=== PATIENT | female | born 1945 | race Caucasian/White ===

== ENCOUNTER 2024-08-23 04:06 | Day surgery (SDC) | payer OTHER, MEDICARE ==
[2024-08-21 14:08] VITALS: BMI 37.2
[2024-08-23] MEDS ORDERED: ACETAMINOPHEN 500 MG TABLET (FP) PO PRN (08:37)
[2024-08-23 09:04] VITALS: TEMP 97.6
[2024-08-23] MEDS: LIDOCAINE HCL 1% PRESERVATIVE FREE - 30ML VIAL IJ ONE ×3 (09:35)
[2024-08-23] MEDS: IOHEXOL 180 MG/1 ML ML IJ ONE ×2 (09:41)
[2024-08-23] MEDS: DEXAMETHASONE SOD PHOSPHATE 10 MG/1 ML VIAL IVPUSH ONE ×2 (09:50)
[2024-08-23 10:13] VITALS: BP 123/69; PULSE 68; RESP 16
== END 2024-08-23 11:45 | disposition home or self-care (01) ==
LOC: JASU-SURG 04:06
PROVIDERS: ATTEND Pain Medicine Pain Medicine
PROC: 3E0R3BZ Introduction of Anesthetic Agent into Spinal Canal, Percutaneous Approach (ICD-10-PCS; 2024-08-23)
PROC: 3E0R33Z Introduction of Anti-inflammatory into Spinal Canal, Percutaneous Approach (ICD-10-PCS; principal; 2024-08-23 10:15)
DX: M54.16 Radiculopathy, lumbar region (principal)
CPT/HCPCS: 76000-TC-FY; J1100

== ENCOUNTER 2024-09-13 04:41 | Day surgery (SDC) | payer OTHER, MEDICARE ==
[2024-09-11 10:14] VITALS: BMI 37.9
[2024-09-13] MEDS ORDERED: ACETAMINOPHEN 500 MG TABLET (FP) PO PRN (09:31)
[2024-09-13] MEDS ORDERED: TRIAMCINOLONE ACET 40MG/1ML VIAL ONE (14:06)
[2024-09-13] MEDS: IOHEXOL 180 MG/1 ML ML IJ ONE ×2 (14:15)
[2024-09-13] MEDS: TRIAMCINOLONE ACET 40MG/1ML VIAL IM ONE ×2 (14:16)
[2024-09-13] MEDS: LIDOCAINE HCL 1% PRESERVATIVE FREE - 30ML VIAL IJ ONE ×2 (14:18)
[2024-09-13] MEDS: BUPIVACAINE HCL/PF 0.5% (5MG/ML) 10 ML VIAL IJ ONE ×2 (14:18)
[2024-09-13 16:13] VITALS: BP 108/65; PULSE 80; RESP 20; TEMP 97.3
== END 2024-09-13 14:50 | disposition home or self-care (01) ==
LOC: JASU-SURG 04:41
PROVIDERS: ATTEND Pain Medicine Pain Medicine
PROC: 3E0U3BZ Introduction of Anesthetic Agent into Joints, Percutaneous Approach (ICD-10-PCS; 2024-09-13)
PROC: 3E0U33Z Introduction of Anti-inflammatory into Joints, Percutaneous Approach (ICD-10-PCS; principal; 2024-09-13 14:00)
DX: M53.3 Sacrococcygeal disorders, not elsewhere classified (principal)
CPT/HCPCS: 76000-TC-FY

== ENCOUNTER 2024-11-09 03:48 | Day surgery (SDC) | payer OTHER, MEDICARE ==
[2024-11-09] MEDS ORDERED: ACETAMINOPHEN 500 MG TABLET (FP) PO PRN (09:46)
[2024-11-09] MEDS: LIDOCAINE HCL 1% PRESERVATIVE FREE - 30ML VIAL IJ ONE ×3 (11:14)
[2024-11-09 11:53] VITALS: RESP 18; TEMP 97.8
[2024-11-09 16:01] VITALS: BP 135/69; PULSE 68
== END 2024-11-09 12:43 | disposition home or self-care (01) ==
LOC: JASUSAT 03:48
PROVIDERS: ATTEND Pain Medicine Pain Medicine
PROC: 01HY3MZ Insertion of Neurostimulator Lead into Peripheral Nerve, Percutaneous Approach (ICD-10-PCS; principal; 2024-11-09 11:00)
DX: G89.4 Chronic pain syndrome (principal)
CPT/HCPCS: 64555; C1778

== ENCOUNTER 2024-11-30 03:50 | Day surgery (SDC) | payer OTHER, MEDICARE ==
[2024-11-29 13:11] VITALS: BMI 37.2
[2024-11-30] MEDS ORDERED: ACETAMINOPHEN 500 MG TABLET (FP) PO PRN (08:47)
[2024-11-30] MEDS ORDERED: LIDOCAINE HCL/PF 2% SDV 5ML VIAL ONE (11:39)
[2024-11-30] MEDS: LIDOCAINE HCL 1% PRESERVATIVE FREE - 30ML VIAL IJ ONE ×2 (12:17)
[2024-11-30 13:11] VITALS: RESP 18
[2024-11-30 13:12] VITALS: BP 123/81; PULSE 69; TEMP 97.5
== END 2024-11-30 13:30 | disposition home or self-care (01) ==
LOC: JASU-SURG 03:50
PROVIDERS: ATTEND Pain Medicine Pain Medicine
PROC: 01HY3MZ Insertion of Neurostimulator Lead into Peripheral Nerve, Percutaneous Approach (ICD-10-PCS; principal; 2024-11-30 10:30)
DX: G89.4 Chronic pain syndrome (principal)
CPT/HCPCS: 64555; C1778; 76000-TC-FY

== ENCOUNTER 2025-01-25 05:13 | Day surgery (SDC) | payer OTHER, MEDICARE ==
[2025-01-23 12:49] VITALS: BMI 37.2
[2025-01-25] MEDS ORDERED: BUPIVACAINE HCL/PF 0.25% (2.5MG/ML) 10 ML VIAL ONE (07:29)
[2025-01-25] MEDS ORDERED: LIDOCAINE HCL/PF 2% SDV 5ML VIAL ONE (07:29)
[2025-01-25] MEDS ORDERED: LIDOCAINE HCL/PF 1% SDV 5ML VIAL ONE (07:30)
[2025-01-25] MEDS ORDERED: ceFAZolin SODIUM 1 GM VIAL ONE (09:18)
[2025-01-25] MEDS: CEFAZOLIN 2 GM/D5W 2 GM/50 ML ML IVPB ONE (09:38)
[2025-01-25 11:19] VITALS: BP 130/75; PULSE 86; RESP 20; TEMP 98.1
[2025-01-25] MEDS ORDERED: ACETAMINOPHEN 325 MG TABLET (FP) ONE (12:06)
[2025-01-25] MEDS ORDERED: ACETAMINOPHEN 500 MG TABLET (FP) PO PRN (13:05)
[2025-01-25] MEDS ORDERED: CEFAZOLIN 2 GM/D5W 2 GM/50 ML ML IVPB ONE (14:15)
== END 2025-01-25 12:08 | disposition home or self-care (01) ==
LOC: JASU-SURG 05:13
PROVIDERS: ATTEND Pain Medicine Pain Medicine
PROC: 01HY3MZ Insertion of Neurostimulator Lead into Peripheral Nerve, Percutaneous Approach (ICD-10-PCS; principal; 2025-01-25 10:32)
DX: G89.4 Chronic pain syndrome (principal); M54.16 Radiculopathy, lumbar region; M54.50 Low back pain, unspecified
CPT/HCPCS: 63650; C1778; 76000-TC-FY; C1897

== ENCOUNTER 2025-02-28 06:23 | Day surgery (SDC) | payer OTHER, MEDICARE ==
[2025-02-26 06:54] VITALS: BMI 37.2
[2025-02-28] MEDS ORDERED: ACETAMINOPHEN 500 MG TABLET (FP) PO PRN (08:27)
[2025-02-28] MEDS ORDERED: LIDOCAINE HCL/PF 1% SDV 5ML VIAL ONE (12:51)
[2025-02-28] MEDS ORDERED: LIDOCAINE HCL/PF 2% SDV 5ML VIAL ONE (12:51)
[2025-02-28] MEDS ORDERED: VANCOMYCIN 1,000 MG VIAL (RESTRICTED TO ID ONLY) ONE (13:06)
[2025-02-28] MEDS ORDERED: GENTAMICIN SO4 80 MG/2 ML VIAL ONE (13:07)
[2025-02-28] MEDS ORDERED: LIDOCAINE 1%/EPI 1:100000 (20 ML MULTI DOSE VIAL) ONE ×2 (13:07→14:51)
[2025-02-28] MEDS ORDERED: DEXMEDETOMIDINE HCL 200 MCG/2 ML IVPB ONE (13:39)
[2025-02-28] MEDS ORDERED: MIDAZOLAM HCL 2 MG/2 ML SINGLE DOSE VIAL ONE (13:47)
[2025-02-28] MEDS: ceFAZolin SODIUM 1 GM VIAL IVPB ONE (13:50)
[2025-02-28] MEDS ORDERED: ceFAZolin SODIUM 1 GM VIAL ONE (13:51)
[2025-02-28] MEDS: LIDOCAINE 1% P/F 10 MG/ML VIAL INF ONE ×3 (14:09)
[2025-02-28] MEDS: LIDOCAINE HCL/PF 2% SDV 5ML VIAL INF ONE ×3 (14:09)
[2025-02-28] MEDS: LIDOCAINE 1%/EPI 1:100000 (20 ML MULTI DOSE VIAL) IJ ONE ×4 (14:34)
[2025-02-28] MEDS ORDERED: ONDANSETRON 4 MG/2 ML VIAL ONE ×2 (15:33→15:45)
[2025-02-28] MEDS ORDERED: LACTATED RINGERS SOLUTION 1,000 ML IV SCH (15:45)
[2025-02-28] MEDS: ONDANSETRON 4 MG/2 ML VIAL IVPUSH PRN (15:45)
[2025-02-28 18:18] VITALS: BP 123/75; PULSE 64; RESP 16; TEMP 97.3
== END 2025-02-28 18:30 | disposition home or self-care (01) ==
LOC: JASU-SURG 06:23
PROVIDERS: ATTEND Pain Medicine Pain Medicine
PROC: 00HV3MZ Insertion of Neurostimulator Lead into Spinal Cord, Percutaneous Approach (ICD-10-PCS; 2025-02-28)
PROC: 0JH73DZ Insertion of Multiple Array Stimulator Generator into Back Subcutaneous Tissue and Fascia, Percutaneous Approach (ICD-10-PCS; principal; 2025-02-28 12:15)
DX: G89.4 Chronic pain syndrome (principal)
CPT/HCPCS: 63650; 63685; C1767; C1778; 76000-TC-FY; 94760